=== PATIENT | female | born 1980 | race Hispanic/Latino ===

== ENCOUNTER 2024-08-15 11:37 | Emergency (ER) | payer SELFPAY ==
[2024-08-15 11:38] VITALS: BP 150/87
--- NOTE | 2024-08-15 13:10 | ED.SKININJ ---
HPI-Injury
General
Chief Complaint: Bite
Source: patient
Time Seen by Provider: 08/15/24 13:04
History of Present Illness-Injury
Initial Injury comments:
44-year-old female presents with a squirrel bite to the right thumb and ring finger. She was taking out the trash and a squirrel bit her on the right hand. Last tetanus unknown. The squirrel then ran off. No other complaints at this time
Past History
Past History
ED Past Medical History: None, HTN, Hypercholesterolemia and Other (Migraine headaches, back pain, Ovarian cysts, cervical dysplasia)
ED Past Surgical History: None
Social History
Tobacco: Smoker
Alcohol: None
Drug: None
Personal:
Living: with family
Employment: Employed
Family History
Family History: CAD (Father of NE at age 45)
Phy Exam
Physical Exam
Physical Exam:
General: Well-appearing female no acute respiratory distress
Skin: Barely noticeable puncture wound dorsal aspect DIP level right ring finger. There is also small abrasion to the volar aspect of the right thumb. No surrounding erythema or swelling.
She has full range of motion all fingers and thumb right hand
Course
Vital Signs
Initial and Last Documented VS:
Initial Vital Signs
Temp Pulse Resp BP Pulse Ox
98.0 F 79 16 150/87 100
08/15/24 11:38 08/15/24 11:38 08/15/24 11:38 08/15/24 11:38 08/15/24 11:38
Last Documented Vital Signs
Temp Pulse Resp BP Pulse Ox
98.0 F 79 16 150/87 100
08/15/24 11:38 08/15/24 11:38 08/15/24 11:38 08/15/24 11:38 08/15/24 11:38
MDM/Problems Addressed
Differential Diagnosis Includes:
Squirrel bite right hand. Very superficial nature. Will update tetanus vaccine. No indication for rabies prophylaxis. At this point given the superficial nature and healthy status of the patient otherwise no indication for antibiotics. She did
wash her hand off. Stable for discharge
*Critical Care Note
Total Time (30-74mins, 75-104mins- exclusive of procedures): Not Applicable
ED Attending Note
-
Portions of this chart may have been created with voice recognition software.� Occasional wrong word or��sound alike� substitutions may have occurred due to the inherent limitations of voice recognition software.
Discharge Plan
Departure
Patient Disposition: Home (Routine Discharge)
Date of Disposition: 08/15/24
Time of Disposition: 13:16
Patient with high blood pressure during this ER visit?: No
Discharge Problem:
Bitten by squirrel
Instructions: Animal Bites (DC)
Prescriptions:
No Action
cyclobenzaprine 10 mg Tablet
10 mg PO TIDPRN PRN (Reason: muscle spasm) Qty: 20 0RF
diclofenac sodium 75 mg tablet,delayed release (DR/EC)
75 mg PO BID PRN (Reason: back pain) Qty: 30 0RF
Rx Instructions:
Take with food.
Referrals:
UNKNOWN - PT DOES,NOT KNOW [Family Provider] -
Activity Restrictions/Additional Instructions:
Watch for signs of infection. Return if worse otherwise follow-up with your doctor
Interventions
Interventions:
*Risk Screen - Suicide Last Done: 08/15/24 11:38
*General Assessment Last Done: 08/15/24 11:38
*Neglect/Abuse Screening Last Done: 08/15/24 12:50
*ED COVID-19 Vaccine History Last Done: 08/15/24 11:38
ED-Skin Assessment Last Done: 08/15/24 12:49
Discharge Date and Time
Print Language: KAZAKH
[2024-08-15] MEDS: ADACEL 0.5 ML IM (13:21)
== END 2024-08-15 13:29 | disposition home or self-care (01) ==
LOC: EMR 11:37
PROVIDERS: EMERGENCY PHYSICIAN Emergency Medicine
DX: S61.051A Open bite of right thumb without damage to nail, initial encounter (principal); S61.254A Open bite of right ring finger without damage to nail, initial encounter; W53.21XA Bitten by squirrel, initial encounter; Z23 Encounter for immunization; F17.200 Nicotine dependence, unspecified, uncomplicated
CPT/HCPCS: 99282; 90471; 90715